=== PATIENT | female | born 1970 | race Caucasian/White ===

== ENCOUNTER 2018-01-26 10:38 | Emergency (ER) | payer MEDICAID ==
[2018-01-26] MEDS: KETOROLAC 30 MG INJ IM (12:38)
== END 2018-01-26 14:14 | disposition home or self-care (01) ==
LOC: FTE 10:38
DX: M25.561 Pain in right knee (principal); G89.29 Other chronic pain; E03.9 Hypothyroidism, unspecified; I10 Essential (primary) hypertension
CPT/HCPCS: 73562; 81025; 93971; 96372; 99285-25

== ENCOUNTER 2018-08-26 08:45 | Emergency (ER) | payer MEDICAID ==
[2018-08-26] MEDS: ACETAMINOPHEN 500 MG TAB PO (09:34)
[2018-08-26] MEDS: DEXAMETHASONE 10 MG/ML 1 ML INJ IM (09:35)
[2018-08-26] MEDS: KETOROLAC 60 MG INJ IM (10:03)
== END 2018-08-26 10:50 | disposition home or self-care (01) ==
LOC: FTE 08:45
DX: J30.9 Allergic rhinitis, unspecified (principal); I10 Essential (primary) hypertension; E03.9 Hypothyroidism, unspecified; E11.9 Type 2 diabetes mellitus without complications
CPT/HCPCS: 81025; 96372; 99284-25